=== PATIENT | female | born 1945 | race Caucasian/White ===

== ENCOUNTER 2024-08-14 22:13 | Emergency (ER) | payer MEDICARE, OTHER ==
[~2024-08-14] VITALS: Ht 167.6 cm; Wt 74.8 kg
[2024-08-14] MEDS ORDERED: ASPI81TA31 PO (22:31)
[2024-08-14] MEDS ORDERED: LATA2.5D15 EACHEYE (22:31)
[2024-08-14] MEDS ORDERED: TRAZ-182 PO (22:31)
[2024-08-14] MEDS ORDERED: SIMV-49 PO (22:31)
[2024-08-14] MEDS ORDERED: CHOL10005 PO (22:31)
[2024-08-14] MEDS ORDERED: CITA20TA16 PO (22:31)
[2024-08-14] MEDS ORDERED: AMLO2.5T4 PO (22:31)
[2024-08-14] MEDS ORDERED: RISP0.5T65 PO ×2 (22:31)
[2024-08-14] MEDS ORDERED: BRIM5DRO11 EACHEYE (22:31)
[2024-08-14] MEDS ORDERED: LOSA100T31 PO (22:31)
[2024-08-14] MEDS ORDERED: MEMA10TA PO (22:31)
[2024-08-14] MEDS ORDERED: QUET100T32 PO (22:31)
[2024-08-15 03:14] VITALS: BP 152/91; O2SAT 98
== END 2024-08-14 22:46 | disposition left against medical advice (07) ==
LOC: ER 22:13
DX: Z00.8 Encounter for other general examination (principal); R46.89 Other symptoms and signs involving appearance and behavior; R03.0 Elevated blood-pressure reading, without diagnosis of hypertension; E78.5 Hyperlipidemia, unspecified; F03.918 Unspecified dementia, unspecified severity, with other behavioral disturbance; I10 Essential (primary) hypertension; Z79.82 Long term (current) use of aspirin; Z79.899 Other long term (current) drug therapy; Z86.69 Personal history of other diseases of the nervous system and sense organs
CPT/HCPCS: A4606; A4663